=== PATIENT | female | born 1955 | race Caucasian/White ===

== ENCOUNTER → 2019-09-03 18:02 | Outpatient (CLI) | payer OTHER, SELFPAY ==
--- NOTE | ~2019-09-03 | XR_ITS ---
EXAMINATION: XR foot LT min 3V DATE: 09/03/2019 18:50 INDICATION: Lateral left foot pain. TECHNIQUE: 4 views of left foot were obtained. COMPARISON: None. FINDINGS: Bone alignment is normal. No fracture. There is moderate osteoarthritis of first metatarsop halangeal joint and mild osteoarthritis of talonavicular joint and some of the interphalangeal joints . There is an enthesophyte at plantar aspect of calcaneal tuberosity. IMPRESSION: 1. Polyarticular osteoarthritis. Reviewed, dictated and finalized at location A. OLOGY SPECIALIST
== END ==
PROVIDERS: PCP Family Medicine; Visit Provider Family Medicine
DX: M19.072 Primary osteoarthritis, left ankle and foot (principal)
CPT/HCPCS: 73630

== ENCOUNTER 2020-06-02 15:41 | Outpatient (CLI) | payer OTHER, SELFPAY ==
--- NOTE | ~2020-06-02 | MM_ITS ---
EXAMINATION: MM screening ariana BI w jose antonio HISTORY: Screening mammogram TECHNIQUE: Craniocaudal and mediolateral oblique 3-D tomosynthesis images were obtained and synthetic 2-D images were generated. CAD analysis was submitted and interpreted. COMPARISON: 09/18/2018 bilateral diagnostic digital mammogram and bilateral Limited breast ultrasound 03/16/2018 bilateral mammogram and complete right breast ultrasound 07/22/2017 diagnostic right digital mammogram and complete right breast ultrasound BREAST PARENCHYMAL COMPOSITION: The breasts are heterogeneously dense, which may obscure small masses . FINDINGS: A biopsy marker is present in the subareolar area; history of bilateral benign breast biops ies. There are scattered bilateral benign microcalcifications. There are multiple left circumscribed opacities measuring up to 2 cm. Diagnostic left mammogram and s onographic correlation are recommended IMPRESSION: 1. Multiple circumscribed centimeter left breast masses 2. Recommend diagnostic left mammogram and left breast ultrasound BI-RADS Category 0: Incomplete: Needs additional imaging evaluation. Reviewed, dictated and finalized at location A. S FORMING ENGINEER
== END 2020-06-02 15:42 | disposition home or self-care (01) ==
LOC: ANHIMG 15:42
PROVIDERS: PCP Family Medicine; Visit Provider Obstetrics & Gynecology
DX: Z12.31 Encounter for screening mammogram for malignant neoplasm of breast (principal); R92.8 Other abnormal and inconclusive findings on diagnostic imaging of breast
CPT/HCPCS: 77063; 77067

== ENCOUNTER 2020-07-18 11:38 | Outpatient (CLI) | payer OTHER, SELFPAY ==
--- NOTE | ~2020-07-18 | MMUS_ITS ---
EXAMINATION: MM diagnostic mammo unilat LT, US breast LT limited HISTORY: Left breast masses on screening mammogram TECHNIQUE: Additional 3-D tomosynthesis images of the left breast were performed and synthetic 2-D im ages were generated. CAD analysis was submitted and interpreted. High resolution limited left breast ultrasound was performed. COMPARISON: 06/02/2020, 09/18/2018, 03/16/2018, 12/13/2016 BREAST PARENCHYMAL COMPOSITION: The breasts are heterogeneously dense, which may obscure small masses . FINDINGS: MAMMOGRAPHIC FINDINGS: Multiple waxing and waning obscured left breast masses are demonstrated with spot compression views. No spiculated or irregular mass is identified. There is no suspicious calcification or architectural distortion. ULTRASOUND: There are multiple cysts in the outer left breast, some of which demonstrate internal septation. No s uspicious cystic or solid mass is identified. IMPRESSION: 1. No mammographic or sonographic evidence of malignancy. 2. Recommend routine screening mammography in one year. BI-RADS Category 2: Benign finding(s). Reviewed, dictated and finalized at location A. ORATE RECYCLING MANAGER IMPRESSION: 1. No mammographic or sonographic evidence of malignancy. 2. Recommend routine screening mammography in one year. BI-RADS Category 2: Benign finding(s).
== END 2020-07-18 11:39 | disposition home or self-care (01) ==
LOC: ANHIMG 11:39
PROVIDERS: PCP Family Medicine; Visit Provider Obstetrics & Gynecology
DX: R92.8 Other abnormal and inconclusive findings on diagnostic imaging of breast (principal)
CPT/HCPCS: 76642; 77065

== ENCOUNTER 2021-12-03 08:34 | Outpatient (CLI) | payer OTHER, SELFPAY ==
--- NOTE | ~2021-12-03 | MM_ITS ---
EXAMINATION: MM screening ariana BI w jose antonio HISTORY: Screening mammogram TECHNIQUE: Craniocaudal and mediolateral oblique 3-D tomosynthesis images were obtained and synthetic 2-D images were generated. CAD analysis was submitted and interpreted. COMPARISON: 07/18/2020 diagnostic left mammogram and limited left breast ultrasound 06/02/2020 bilateral screening mammogram 09/18/2018 bilateral diagnostic mammography and Limited bilateral breast ultrasound 03/16/2018 bilateral mammogram and complete right breast ultrasound 07/22/2017 diagnostic right mammogram and complete right breast ultrasound 12/13/2016 diagnostic left mammogram and complete left breast ultrasound 06/29/2016 Diagnostic left mammogram and limited left breast ultrasound 06/25/2015 bilateral screening mammogram BREAST PARENCHYMAL COMPOSITION: The breasts are heterogeneously dense, which may obscure small masses . FINDINGS: There are bilateral breast masses. There is bilateral architectural distortion including up per outer left breast, central and inner right breast on craniocaudal view. Bilateral diagnostic mammography and breast ultrasound examination are recommended. IMPRESSION: 1. Bilateral breast masses and architectural distortion 2. Recommend routine screening mammography in one year. BI-RADS Category 0: Incomplete: Needs additional imaging evaluation. Reviewed, dictated and finalized at location A.
== END 2021-12-03 08:35 | disposition home or self-care (01) ==
PROVIDERS: PCP Family Medicine; Visit Provider Obstetrics & Gynecology
DX: Z12.31 Encounter for screening mammogram for malignant neoplasm of breast (principal); R92.8 Other abnormal and inconclusive findings on diagnostic imaging of breast
CPT/HCPCS: 77063; 77067

== ENCOUNTER 2021-12-15 13:40 | Outpatient (CLI) | payer OTHER, SELFPAY ==
--- NOTE | ~2021-12-15 | MM_ITS ---
EXAMINATION: MM diagnostic ariana BI w jose antonio HISTORY: Bilateral breast masses and possible architectural distortion on screening mammogram TECHNIQUE: Additional 3-D tomosynthesis images of the breasts were performed and synthetic 2-D images were generated. CAD analysis was submitted and interpreted. COMPARISON: 12/03/2021, 07/18/2020, 06/02/2020, 09/18/2018, 03/16/2018, 07/22/2017 FINDINGS: Again seen are multiple waxing and waning bilateral breast masses which have been previousl y characterized as benign. None demonstrate suspicious interval change with spot compression. In alexis tion, there are areas of subtle architectural distortion in both breasts which have a stable appearan ce with spot compression when compared to prior mammograms. IMPRESSION: 1. No mammographic evidence of malignancy. 2. Recommend routine screening mammography in one year. BI-RADS Category 2: Benign finding(s). Reviewed, dictated and finalized at location A.
== END 2021-12-15 13:41 | disposition home or self-care (01) ==
PROVIDERS: PCP Emergency Medicine; Visit Provider Obstetrics & Gynecology
DX: R92.8 Other abnormal and inconclusive findings on diagnostic imaging of breast (principal)
CPT/HCPCS: 77062; 77066; G0279

== ENCOUNTER 2023-03-30 09:31 | Outpatient (CLI) | payer OTHER, SELFPAY ==
--- NOTE | ~2023-03-30 | CT_ITS ---
EXAMINATION: CT abdomen pelvis w con DATE: 03/30/2023 09:58 INDICATION: Blood in stools. TECHNIQUE: Computed tomography (CT) of the abdomen and pelvis was performed with 100 mL Omnipaque-350 intravenous contrast. Automated exposure control and iterative reconstruction technique were employe d. The dose-length product was 293.04 mGy-cm. COMPARISON: None FINDINGS: Minimal dependent atelectasis in the right lower lobe. Arch size is normal. No pericardial or pleural effusion. 6 mm hepatic cyst. Gallbladder, spleen, pancreas, bilateral adrenal glands and kidneys are normal. Bladder is normal. The uterus is not identified and has likely been surgically resected. Int estinal malrotation with small bowel in the right abdomen in the colon in the left abdomen. No abnorm al bowel wall thickening or obstruction. Normal appendix. Minimal free fluid in the deep pelvis. No a bscess or free intraperitoneal gas. No pathologically enlarged abdominal or pelvic lymphadenopathy. M oderate spondylosis at the lumbosacral junction with mild cephalad lumbar and lower thoracic spondylo sis. IMPRESSION: 1. Small amount of likely physiologic free fluid in the pelvis. No acute intra-abdominal/pelvic proce ss. 2. Intestinal malrotation. Reviewed, dictated and finalized at location A. IMPRESSION: 1. Small amount of likely physiologic free fluid in the pelvis. No acute intra- abdominal/pelvic process. 2. Intestinal malrotation.
[2023-03-30 09:53] LABS: Estimated Glomerular Filt Rate > 60
== END 2023-03-30 09:32 | disposition home or self-care (01) ==
PROVIDERS: PCP Internal Medicine; Visit Provider Nurse Practitioner
DX: K92.1 Melena (principal); R10.32 Left lower quadrant pain; Q43.3 Congenital malformations of intestinal fixation
CPT/HCPCS: 74177; Q9967

== ENCOUNTER 2023-04-20 14:49 | Outpatient (CLI) | payer OTHER, SELFPAY ==
--- NOTE | ~2023-04-20 | MM_ITS ---
EXAMINATION: MM screening ariana BI w jose antonio HISTORY: Screening mammogram TECHNIQUE: Craniocaudal and mediolateral oblique 3-D tomosynthesis images were obtained and synthetic 2-D images were generated. CAD analysis was submitted and interpreted. COMPARISON: diagnostic bilateral mammogram 12/03/2021 bilateral screening mammogram 07/18/2020 diagnostic left mammogram and limited left breast ultrasound 06/02/2020 bilateral screening mammogram BREAST PARENCHYMAL COMPOSITION: The breasts are heterogeneously dense, which may obscure small masses . FINDINGS: There are numerous bilateral circumscribed opacities with halo sign, consistent with multip le bilateral benign cysts. Biopsy marker on the right. History of bilateral benign breast biopsies. There are scattered bilateral benign calcifications. No suspicious mass, malignant calcification, skin thickening or retraction is evident. IMPRESSION: 1. Multiple bilateral breast cysts No mammographic evidence of malignancy. 2. Recommend routine screening mammography in one year. BI-RADS Category 2: Benign finding(s). Reviewed, dictated and finalized at location A.
== END 2023-04-20 14:50 | disposition home or self-care (01) ==
LOC: ANHIMG 14:51
PROVIDERS: PCP Internal Medicine; Visit Provider Obstetrics & Gynecology
DX: Z12.31 Encounter for screening mammogram for malignant neoplasm of breast (principal)
CPT/HCPCS: 77063; 77067

== ENCOUNTER 2023-06-07 03:13 | Day surgery (SDC) | payer OTHER, SELFPAY ==
[2023-05-20 09:47] VITALS: BMI 22.9
--- NOTE | 2023-06-06 09:10 | SUR.PREOP ---
Patient called regarding upcoming procedure. Message left on patient's voicemail regarding preop instructions, appointment times, and procedure prep.
[2023-06-07 09:52] VITALS: BP 111/61; PULSE 77; RESP 16; TEMP 36.3; O2SAT 99; BMI 22.3
[2023-06-07] MEDS: LACTATED RINGERS 1,000 ML 150 ML IV CONT (10:06)
--- NOTE | 2023-06-07 10:12 | P.PNAN_ITS ---
Anes - Initial Pre Proc Eval Procedure: Operation Date: 06/07/23 11:00 Proposed Procedures p Esophagogastroduodenoscopy & Screening Colonoscopy - Triston Toledo MD Date/Time: 06/07/23 10:12 Surgeon: Triston Toledo MD Pre Op Diagnosis: GERD,neoplasm screening Patient Data Age: 67 Gender: F Height: 1.6 m Weight: 57.2 kg Last Vital Signs Temp 97.3 F L 06/07/23 09:52 Pulse 77 06/07/23 09:52 Resp 16 06/07/23 09:52 BP 111/61 06/07/23 09:52 Pulse Ox 99 06/07/23 09:52 O2 Del Method Room Air 06/07/23 09:52 Allergies Allergy/AdvReac Type Severity Reaction Status Date / Time No Known Allergies Allergy Unknown Verified 06/07/23 09:51 Home Medications Medication Instructions Recorded Confirmed Type estradiol 1 mg tablet 1 mg PO DAILY 09/03/19 06/07/23 History alprazolam 0.5 mg tablet 0.5 mg PO .q4 PRN anxiety #30 tabs 03/18/21 06/07/23 Rx vortioxetine 10 mg tablet See Rx Instructions .Route 08/07/21 06/07/23 Rx (Trintellix) .COMPLEX #90 tabs quetiapine 25 mg tablet See Rx Instructions .Route 12/09/22 06/07/23 Rx .COMPLEX #90 tabs Patient hx anesthesia problems: none Family hx anesthesia problems: none Results Review: All pre-operative results and documents have been reviewed as part of the pre- operative evaluation. [facility] Surgical History Surgical History H/O: hysterectomy Social History Social History Smoking status: Never smoker Alcohol intake: current Drinks per week: 2 Alcohol use details: wine Substance use: never Substance use type: does not use Living arrangements: with family Spiritual care concerns: No Anes - Eval Final PreProcedure Day of Procedure 06/07/23 10:12 Patient weight: normal Heart: regular rate and rhythm Lungs: clear to auscultation Airway: Mallampati scale class II Neurological: alert and oriented Last oral intake: >/= 8 hours ASA classification: II Emergent: no Anesthetic plan: proceed Anesthesia type and monitoring: general GIVS and standard monitoring Results Review: All pre-operative results and documents have been reviewed as part of the pre- operative evaluation. Informed Consent: The patient's anesthetic plan and its attendant risks and benefits were discussed with the patient/family/POA. Questions were solicited and answers provided to the satisfaction of the patient/family/POA.
--- NOTE | 2023-06-07 10:27 | PM.HPGS ---
History of Present Illness History of Present Illness Consent: Risks, benefits, and alternatives have been discussed and questions answered. Patient agrees to proceed with procedure. Chief complaint: GERD,neoplasm screening Narrative: Maddie Porter is a 67 year old female Presents for EGD and colonoscopy. Patient reports irregular bowel movements care it. Occasional loose stools. It has been approximately 15 years since last colonoscopy. She presents for screening colonoscopy. Because of abdominal discomfort and GE reflux an EGD is requested. Review of Systems Review of Systems: Review of systems noncontributory. [facility] Surgical History Surgical History H/O: hysterectomy Social History Social History Smoking status: Never smoker Alcohol intake: current Drinks per week: 2 Alcohol use details: wine Substance use: never Substance use type: does not use Living arrangements: with family Spiritual care concerns: No Meds Home Medications and Allergies Home Medications Medication Instructions Recorded Confirmed Type estradiol 1 mg tablet 1 mg PO DAILY 09/03/19 06/07/23 History alprazolam 0.5 mg tablet 0.5 mg PO .q4 PRN anxiety #30 tabs 03/18/21 06/07/23 Rx vortioxetine 10 mg tablet See Rx Instructions .Route 08/07/21 06/07/23 Rx (Trintellix) .COMPLEX #90 tabs quetiapine 25 mg tablet See Rx Instructions .Route 12/09/22 06/07/23 Rx .COMPLEX #90 tabs Allergies Allergy/AdvReac Type Severity Reaction Status Date / Time No Known Allergies Allergy Unknown Verified 06/07/23 09:51 Vital Signs Vital Signs - 24 hr 06/07/23 09:52 Temperature 97.3 F L Pulse Rate 77 Respiratory Rate 16 Blood Pressure 111/61 Pulse Oximetry 99 Oxygen Delivery Room Air Exam Narrative: Physical exam reveals patient to be alert. Vital signs stable. HEENT exam is unremarkable. Patient is anicteric. Lungs are clear to auscultation and to percussion. Heart is without murmur or extra sounds. Abdomen bowel sounds are present soft nontender with no organomegaly. Digital external rectal exam normal. Assessment and Plan Assessment and plan (1) Encounter for screening colonoscopy: Code(s): Z12.11 - Encounter for screening for malignant neoplasm of colon Status: Acute Assessment and Plan: Patient presents for screening exam is been more than 10 years since last exam. She currently complains of irregular bowel movements. Fiber supplementation encouraged. Further recommendations may be given after endoscopy. (2) GERD (gastroesophageal reflux disease): Code(s): K21.9 - Gastro-esophageal reflux disease without esophagitis Status: Acute Assessment and Plan: Patient referred for GE reflux disease. She states she has bowel irregularities discomfort. Occasional phlegm in her throat. EGD is requested will be performed. She may wish to consider ENT evaluation if this fails to identify source of discomfort.
--- NOTE | 2023-06-07 11:05 | SUR.OPER ---
EGD END: 1100 COLONOSCOPY START: 110
[2023-06-07 11:20] VITALS: BP 147/78; PULSE 72; RESP 17; O2SAT 98
[2023-06-07 11:30] VITALS: BP 140/79; PULSE 64; RESP 19; O2SAT 100
[2023-06-07 11:40] VITALS: BP 136/77; PULSE 63; RESP 15; O2SAT 100
== END 2023-06-07 11:51 | disposition home or self-care (01) ==
PROVIDERS: PCP Internal Medicine; Visit Provider Internal Medicine Gastroenterology
PROC: 0DJ08ZZ Inspection of Upper Intestinal Tract, Via Natural or Artificial Opening Endoscopic (ICD-10-PCS; CPT 43235; principal; 2023-06-07 11:00)
DX: Z12.11 Encounter for screening for malignant neoplasm of colon (principal); K64.8 Other hemorrhoids; K21.9 Gastro-esophageal reflux disease without esophagitis
CPT/HCPCS: 43239; 45378; 87081; J2704; J7120

== ENCOUNTER 2024-05-07 07:40 | Outpatient (CLI) | payer OTHER, SELFPAY ==
--- NOTE | ~2024-05-07 | DEXA_ITS ---
Bone Density Report Name: WILLIAN ORELLANA Age: 68 Sex: Female Ethnicity: White Date of : 1955 Indication: postmenopausal; screening for osteoporosis; inflammatory bowel disease; hysterectomy; Referring Provider: MERCEDEZ, YONATHAN Study: Bone densitometry was performed. Exam Date: May 07, 2024 Accession number: [id number] Bone Density: Region BMD T-score Z-score Classification AP Spine(L1-L4) 1.162 1.0 3.0 Normal Femoral Neck (Left) 0.741 -1.0 0.7 Normal Total Hip (Left) 0.855 -0.7 0.6 Normal Femoral Neck (Right) 0.701 -1.3 0.3 Osteopenia Total Hip (Right) 0.836 -0.9 0.5 Normal Total Hip Mean 0.845 -0.8 0.6 Normal World Health Organization criteria for BMD impression classify patients as: Normal (T-score at or above -1.0), Osteopenia (T-score between -1.0 and -2.5), or Osteoporosis (T-score at or below -2.5). 10-year Fracture Risk(1): Major Osteoporotic Fracture 8.7% Hip Fracture 0.9% Reported Risk Factors: [place] (), Neck BMD=0.701, BMI=23.1 (1) FRAX(R) Version 3.08. Fracture probability calculated for an untreated patient. Fracture probability may be lower if the patient has received treatment. Clinical Information Provided by Patient: Has the following medical conditions: Inflammatory bowel diseases, Hysterectomy Patient maximum height was 63.5 Does not regularly consume dairy products Drinks caffeinated beverages Onset of menses at age 13 Number of children 3 Impression: The patient has low bone mass, based on the Right Femoral Neck T-score. The patient has an estimated ten-year risk of hip fracture of 0.9% and an estimated ten-year risk of major fracture of 8.7%, based on the WHO FRAX algorithm. Discussion: BONE DENSITY IS LOW AT ONE OR MORE SKELETAL SITES. This patient's lowest T-score is low at one or more skeletal sites. It meets the World Health Organization's (WHO) criteria for ?low bone mass? (T-score between -1.0 and -2.5). The patient's 10-year risk of fracture as calculated by FRAX is less than the threshold where pharmacological therapy is recommended by the National Osteoporosis Foundation (NOF). However, all treatment decisions require clinical judgment and consideration of individual patient factors, including patient preferences, comorbidities, previous drug use, risk factors not captured in the FRAX model (e.g., frailty, falls, vitamin D deficiency, increased bone turnover, interval significant decline in bone density) and possible under or overestimation of fracture risk by FRAX. The patient should follow a healthful lifestyle (good nutrition with adequate calcium and vitamin D, and appropriate weight-bearing exercise). Follow-Up: Consider repeating this study in 2 to 3 years to reassess this patient's status, or sooner if there is some new clinical indication. Reported by: EFRAÍN on 05/07/2024 8:08:00 AM. Reviewed, dictated and finalized at location AZonia HAIDER
== END 2024-05-07 07:41 | disposition home or self-care (01) ==
LOC: ANHIMG 07:41
PROVIDERS: PCP Family Medicine; Visit Provider Internal Medicine
DX: M85.851 Other specified disorders of bone density and structure, right thigh (principal); Z78.0 Asymptomatic menopausal state
CPT/HCPCS: 77080

== ENCOUNTER 2024-06-20 09:33 | Outpatient (CLI) | payer OTHER, SELFPAY ==
--- NOTE | ~2024-06-20 | MM_ITS ---
EXAMINATION: MM screening ariana BI w jose antonio HISTORY: Screening TECHNIQUE: Craniocaudal and mediolateral oblique 3-D tomosynthesis images were obtained and synthetic 2-D images were generated. CAD analysis was submitted and interpreted. COMPARISON: Comparison to multiple prior studies sequentially, with oldest reviewed study dated 09/18. BREAST PARENCHYMAL COMPOSITION: Dense: The breasts are heterogeneously dense, which may obscure small masses FINDINGS: There are developing masses in the upper outer quadrant of the right breast as well as the upper outer quadrant of the left breast in the lower central left breast. IMPRESSION: 1. Developing bilateral breast masses. 2. Additional mammographic views and possible breast ultrasound are recommended. BI-RADS Category 0: Incomplete: Needs additional imaging evaluation. Reviewed, dictated and finalized at location B. NG BOOKKEEPER IMPRESSION: 1. Developing bilateral breast masses. 2. Additional mammographic views and possible breast ultrasound are recommended . BI-RADS Category 0: Incomplete: Needs additional imaging evaluation.
== END 2024-06-20 09:34 | disposition home or self-care (01) ==
LOC: ANHIMG 09:36
PROVIDERS: PCP Family Medicine; Visit Provider Obstetrics & Gynecology
DX: R92.2 Inconclusive mammogram (principal)
CPT/HCPCS: 77063; 77067

== ENCOUNTER 2024-07-09 10:18 | Outpatient (CLI) | payer OTHER, SELFPAY ==
--- NOTE | ~2024-07-09 | MMUS_ITS ---
EXAMINATION: MM diagnostic ariana BI w jose antonio, US breast BI limited HISTORY: Probable benign 5 mm right breast mass TECHNIQUE: 3-D tomosynthesis images of the breasts were performed and synthetic 2-D images were gener ated. CAD analysis was submitted and interpreted. High resolution limited right breast ultrasound was performed. COMPARISON: 06/20/2024, 04/20/2023 12/03/2021 BREAST PARENCHYMAL COMPOSITION:Dense: The breasts are heterogeneously dense, which may obscure small masses. FINDINGS: MAMMOGRAPHIC FINDINGS: Multiple bilateral breast masses are present mammographically, relatively similar in size and distrib ution from prior exam. These were previously shown to represent breast cysts. No suspicious mass or t orsion seen. No suspicious microcalcification. ULTRASOUND: Multiple bilateral breast cysts are present. Largest cyst in the right breast measures 2.0 x 2.5 x 1. 2 cm. Largest cyst in the left breast measures 1.8 x 2.1 x 1.2 cm. At the 2:00 position left breast, 3 cm the nipple, there is a 5 x 7 x 4 mm hypoechoic solid circumscr ibed mass. No posterior shadowing. There is a similar-appearing 6 x 6 x 5 mm hypoechoic solid mass in the left breast 3:00 position, 4 cm from the nipple. IMPRESSION: 2 separate subcentimeter probable benign solid masses at the left breast, at the 3:00 and 2:00 positi ons, as detailed above. 6 month follow-up ultrasound recommended to reassess these solid lesions. Multiple breast cysts otherwise. BI-RADS category 3, probably benign findings. Reviewed, dictated and finalized at location . EL LOADER IMPRESSION: 2 separate subcentimeter probable benign solid masses at the left breast, at th e 3:00 and 2:00 positions, as detailed above. 6 month follow-up ultrasound [place] mmended to reassess these solid lesions. Multiple breast cysts otherwise. BI-RADS category 3, probably benign findings.
== END 2024-07-09 10:19 | disposition home or self-care (01) ==
LOC: ANHIMG 10:21
PROVIDERS: PCP Family Medicine; Visit Provider Obstetrics & Gynecology
DX: R92.8 Other abnormal and inconclusive findings on diagnostic imaging of breast (principal)
CPT/HCPCS: 76642; 77062; 77066; G0279

== ENCOUNTER 2025-01-22 12:47 | Outpatient (CLI) | payer MEDICARE, SELFPAY ==
--- NOTE | ~2025-01-22 | US_ITS ---
US breast LT limited 01/22/2025 13:19 Indication: Six-month follow-up left breast masses Procedure: High-resolution Limited ultrasound of the left breast Comparison: 07/09/2024 Findings: Mass in the left breast at 2:00, 3 cm from the nipple is stable measuring 6 x 5 x 4 mm with parallel orientation, circumscribed margins, no internal vascularity or significant posterior featur es, likely benign. Mass at 3:00, 6 cm from the nipple is stable measuring 5 x 4 x 4 mm, likely benign . Mass at 3:00, 6 cm from the nipple is similar appearance measuring 5 mm, not definitely seen on emilee or study, likely benign. Impression: 1: Multiple likely benign left breast masses. BI-RADS CATEGORY 3-PROBABLY BENIGN FINDING RECOMMENDATION: Six-month follow-up diagnostic bilateral mammogram and Limited left breast ultrasound . Reviewed, dictated and finalized at location B. Impression: 1: Multiple likely benign left breast masses. BI-RADS CATEGORY 3-PROBABLY BENIGN FINDING RECOMMENDATION: Six-month follow-up diagnostic bilateral mammogram and Limited left breast ultrasound.
--- OUTSIDE RECORDS SUMMARY | 2025-01-22 12:58 | XMS_ITS | Clinical Summary ---
Author Organization [facility] Address [address] [place] [address] Care Team Providers Care Gas Plumbing Inspector Name Role Phone Jamie Sethi MD Primary Care Provider [phone] Allergies Active Allergy Reactions Criticality Noted Date Comments Venlafaxine Other (see comment) 02/25/2023 Could see her eyelashes and hear them blink Medications estradiol (ESTRACE) 1 MG tablet Take 1 tablet (1 mg total) by mouth daily. 05/13/2022 Active escitalopram (LEXAPRO) 10 MG tabletIndicatio ns:Moderate episode of recurrent major depressive disorder (CMS/HCC),Anxie ty Take 1.5 tablets (15 mg total) by mouth daily. 135 tablet 1 02/17/2024 Active QUEtiapine (SEROQUEL) 25 MG tabletIndicatio ns:Moderate episode of recurrent major depressive disorder (CMS/HCC),Anxie ty Take 1 tablet (25 mg total) by mouth nightly at bedtime. 90 tablet 1 02/17/2024 Active TRINTELLIX 20 MG tabletIndicatio ns:Moderate episode of recurrent major depressive disorder (CMS/HCC) Take 1 tablet (20 mg total) by mouth daily. 30 tablet 03/12/2024 Active Active Problems Problem Noted Date Diagnosed Date Osteopenia of neck of right femur 12/10/2022 Overview (12/10/2022): DEXA scan 2019. Moderate episode of recurrent major depressive d isorder 05/27/2022 Anxiety 05/27/2022 Family history of breast cancer in sister 2021 Immunizations Immunization Administration Dates Next Due MODERNA COVID-19 (12+) MRNA, LNP-S, PF, 100 MCG/ 0.5 ML DOSE 09/22/2021 Shingrix 08/19/2021,06/08/2021 Family History Medical History Relation Comments Cancer Daughter 1 Depression Daughter 2 Depression Father Diabetes Maternal Grandfather Cancer Maternal Grandmother Arthritis Mother Cancer Sister Relation Status Comments Daughter 1 Daughter 2 Father Maternal Grandfather Maternal Grandmother Mother Sister Alive Social History Tobacco Use Types Packs/Day Years Used Date Smoking Tobacco: Never Passive Smoke Exposure: Past Smokeless Tobacco: Never Tobacco Cessation:Counseling Given: No Comments:Counseled by Dr. Sethi. 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 Gender Identity Not on file Sexual Orientation Not on file Last Filed Vital Signs Vital Sign Reading Time Taken Comments Blood Pressure 123/70 02/17/2024 2:15 PM CDT Pulse 73 02/17/2024 2:15 PM CDT Temperature 36.7 C (98 F) 02/17/2024 2:15 PM CDT Respiratory Rate 18 02/17/2024 2:15 PM CDT Oxygen Saturation 98% 02/17/2024 2:15 PM CDT Inhaled Oxygen Concentration - - Weight 59.3 kg (130 lb 12.8 oz) 02/17/2024 2:15 PM CDT Height 160 cm (5' 3) 02/17/2024 2:15 PM CDT Body Mass Index 23.17 02/17/2024 2:15 PM CDT Plan of Treatment Health Maintenance Due Date Last Done Comments DTaP, Tdap and Td Vaccines (1 - Tdap) 11/24/1975 Pneumococcal Vaccine: 50+ Years (1 of 1 - PCV) 2006 COVID-19 Vaccine (3 - season) 2024 09/22/2021, 10/14/2020 PHQ-2 (Physician [place]) 07/11/2024 10/18/2023 Mammogram Screening 04/20/2025 04/20/2023, 12/15/2021, 12/15/2021, Additional history exists Colorectal Cancer Screening FIT-DNA (3 Years) 06/12/2025 06/12/2022, 06/12/2022 RSV Immunization or 60+ Years (1 - 1-dose 75+ series) 11/24/2031 Zoster Vaccines Completed 08/19/2021, 06/08/2021 Hepatitis C Completed 02/24/2024 Dexa Scan (General) Completed 05/07/2024, 0 Meningococcal B Vaccine Aged Out No l onger eligible based on patient's age to complete this topic Meningococcal Vaccine Aged Out No jersey roger eligible based on patient's age to complete this topic RSV Immunizations Under 20 Months Aged Out No longer eligible based on patient's age to complete this topic Procedures Procedure Name Priority Date/Time Associated Diagnosis Comments BONE DENSITY GENERIC (SCAN ORDER) 05/07/2024 HEPATITIS C ANTIBODY Routine 02/24/2024 8:03 AM CDT Annual physical exam General medical exam MAMMOGRAM GENERIC (SCAN ORDER) 04/20/2023 COLOGUARD (SCAN ORDER) Routine 06/12/2022 from Last 3 Months or Most Recently Relevant to Health Maintenance Results * BONE DENSITY GENERIC (SCAN ORDER) (05/07/2024) Anatomical Region Laterality Modality Other 05/07/2024 [facility] Scanned SCANNING Final Resu lt * HEPATITIS C ANTIBODY (02/24/2024 8:03 AM CDT) HEPATITIS C AB NON-REACTI VE NON-REACT MATHEW 02/24/2024 6:30 PM CDT [facility] Comment: ANTIBODIES TO HCV NOT DETECTED. DOES NOT EXCLUDE THE POSSIBILITY OF EXPOSURE TO HCV. 02/24/2024 8:03 AM CDT Jamie Sethi MD LABORATORY Final Result [facility] [address] [place] [address], [id number] * MAMMOGRAM GENERIC (04/20/2023) Anatomical Region Laterality Modality Other 04/20/2023 us [employer] [facility] Scanned SCANNING Final Resu lt * COLOGUARD (SCAN) (06/12/2022) COLOGUARD NEGATIVE [facility] ONBASE STOOL 06/12/2022 us [employer] [facility] Scanned SCANNING Final Resu lt HS ONBASE from Last 3 Months or Most Recently Relevant to Health Maintenance Insurance [employer] OPEN [facility] Care Teams Gas Plumbing Inspector Relationship Specialty Start Date End Date Jamie Sethi MD [address] [facility] [address] [place] [address] PCP - General INTERNAL MEDICINE 12/13/22
--- OUTSIDE RECORDS SUMMARY | 2025-01-22 12:58 | XMS_ITS | Encounter Summary ---
Author Organization [facility] Address [address] [place] [address] Care Team Providers Care Engraving Operator Name Role Phone Jamie Sethi MD Primary Care Provider [phone] Encounter Details Date Type Department Care Team (Latest Contact Info) Description 03/12/2024 LikeBrightt Message Enc [facility] Medical Group Multispecialty Care - [place] [address] [address] [place], [place] [id number] Jamie Sethi MD [address] [id number] Appointment needed for mood medication Social History Tobacco Use Types Packs/Day Years Used Date Smoking Tobacco: Never Passive Smoke Exposure: Past Smokeless Tobacco: Never Comments:Counseled by Dr. Ernestina mesa. 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
--- OUTSIDE RECORDS SUMMARY | 2025-01-22 12:58 | XMS_ITS | Encounter Summary ---
Author Organization [facility] Address [address] [place] [address] Care Team Providers Care Internet Architect Name Role Phone Armando Hampton MD Primary Care Pr ovider [facility] Jamie Sethi MD Primary Care Provider [phone] Encounter Details Date Type Department Care Team (Late st Contact Info) Description 07/22/2022 Agilyst Message Enc [facility] Medical Group Multispecialty Care - [address] [place] [address] Armando Hampton MD Lexapro Medication Social History Tobacco Use Types Packs/Day Years Used Date Smoking Tobacco: Never Smokeless Tobacco: Never Alcohol Use Standard Drinks/Week Comments Yes 5 (1 standard drink = 0.6 oz pur e alcohol) PHQ-2 Answer Date Recorded PHQ-2 Score - If the patient scores above 3, please move on to questions 3-9 2 06/14/2022 Comments No Sex and Gender Information Value Date Recorded Sex Assigned at Not on file 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 Sex Female 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 Gender Identity Not on file Sexual Orientation Not on file documented as of this encounter Plan of Treatment Not on file documented as of this encounter Visit Diagnoses Not on filedocumented in this encounter Additional Health Concerns Assessment Noted Time PHQ-9 Depression Total Score: 8 06/14/20 22 3:55 PM RIVET TOSSER documented as of this encounter Care Teams Internet Architect Relationship Specialty Start Date End Date Armando Hampton MD PCP - General FAMILY PRACTICE 05/27/22 12/12/22 Jamie Sethi MD [address] [facility] [address] [place] [address] PCP - General INTERNAL MEDICINE 12/13/22 documented as of this encounter
--- OUTSIDE RECORDS SUMMARY | 2025-01-22 12:58 | XMS_ITS | Encounter Summary ---
Author Organization [facility] Address [facility] [place] [address] Care Team Providers Care Plaster Block Layer Name Role Phone Jamie Sethi MD Primary Care Provider [phone] Encounter Details Date Type Department Care Team (Late st Contact Info) Description 02/04/2023 NanoViricideshart Message Enc [facility] Medical Group Multispecialty Care - [place] [address] [address] [place], [place] [id number] Jamie Sethi MD [address] [place] [address] Prozac Dosage Social History Tobacco Use Types Packs/Day Years Used Date Smoking Tobacco: Never Passive Smoke Exposure: Past Smokeless Tobacco: Never Comments:Counseled by Dr. Ernestina mesa. 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
--- OUTSIDE RECORDS SUMMARY | 2025-01-22 12:58 | XMS_ITS | Encounter Summary ---
Author Organization [facility] Address [address] [place] [address] Care Team Providers Care Glue Mixer Name Role Phone Jamie Sethi MD Primary Care Provider [phone] Encounter Details Date Type Department Care Team (Latest Contact Info) Description 08/08/2023 [email or web address].[email or web address] Message Enc [facility] Medical Group Multispecialty Care - [place] [address] [address] [place], [place] [phone] Jamie Sethi MD [address] [place] [address] Medication Change Social History Tobacco Use Types Packs/Day Years Used Date Smoking Tobacco: Never Passive Smoke Exposure: Past Smokeless Tobacco: Never Comments:Counseled by Dr. Ernestina mesa. 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
--- OUTSIDE RECORDS SUMMARY | 2025-01-22 12:58 | XMS_ITS | Encounter Summary ---
Author Organization [facility] Address [address] [place] [address] Care Team Providers Care Propeller Layout Worker Name Role Phone Armando Hampton MD Primary Care Pr Jamie Bee MD Primary Care Provider [phone] Encounter Details Date Type Department Care Team (Late st Contact Info) Description 11/03/2022 Ticketlandhart Message Enc [facility] Medical Group Multispecialty Care - [address] [place] [address] Armando Hampton MD [facility] Lab Results Social History Tobacco Use Types Packs/Day Years Used Date Smoking Tobacco: Never Passive Smoke Exposure: Past Smokeless Tobacco: Never Alcohol Use Standard Drinks/Week Comments Yes 5 (1 standard drink = 0.6 oz pur e alcohol) PHQ-2 Answer Date Recorded Patient Health Questionnaire-2 Score 6 11/01/2022 Comments No Sex and Gender Information Value Date Recorded Sex Assigned at Not on file 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 No / Unsure 11/01/2022 2:45 PM CDT documented as of this encounter Plan of Treatment Not on file documented as of this encounter Visit Diagnoses Not on filedocumented in this encounter Additional Health Concerns Assessment Noted Time PHQ-9 Depression Total Score: 14 023 5:12 PM CDT documented as of this encounter Care Teams Propeller Layout Worker Relationship Specialty Start Date End Date Armando Hampton MD PCP - General FAMILY PRACTICE 05/27/22 12/12/22 Jamie Sethi MD [address] [address] PCP - General INTERNAL MEDICINE 12/13/22 documented as of this encounter
--- OUTSIDE RECORDS SUMMARY | 2025-01-22 12:58 | XMS_ITS | Encounter Summary ---
Author Organization [facility] Address [address] [place] [address] Care Team Providers Care Yard Specialist Name Role Phone Armando Hampton MD Primary Care Pr Jamie Bee MD Primary Care Provider [phone] Encounter Details Date Type Department Care Team (Late st Contact Info) Description 06/22/2022 fruux Message [employer] HE[facility] INFORMATION MANAGEMENT [address] [place] [address] [employer], [facility] Provider Patient Amendment Request Social History Tobacco Use Types Packs/Day Years [...] on file Legal Sex Female 12:03 PM JANITOR HEAD Gender Identity Not on file Sexual Orientation Not on file COVID-19 Exposure Response Date Recorded In the last 10 days, have yo u been in contact with someone who was confirmed or suspected to have Coronavirus/COVID-19? No / Unsure 06/14/2022 2:42 PM JANITOR HEAD documented as of this encounter Plan of Treatment Not on file documented as of this encounter Visit Diagnoses Not on filedocumented in this encounter Additional Health Concerns Assessment Noted Time PHQ-9 Depression Total Score: 8 06/14/20 22 3:55 PM JANITOR HEAD documented as of this encounter Care Teams Yard Specialist Relationship Specialty Start Date End Date Armando Hampton MD PCP - General FAMILY PRACTICE 05/27/22 12/12/22 Jamie Sethi MD [address] [address] PCP - General INTERNAL MEDICINE 12/13/22 documented as of this encounter
== END 2025-01-22 12:48 | disposition home or self-care (01) ==
LOC: ANHIMG 12:50
PROVIDERS: PCP Family Medicine; Visit Provider Obstetrics & Gynecology
DX: R92.8 Other abnormal and inconclusive findings on diagnostic imaging of breast (principal)
CPT/HCPCS: 76642

== ENCOUNTER 2025-06-21 12:44 | Outpatient (CLI) | payer MEDICARE, SELFPAY | END 2025-06-21 12:45 | disposition home or self-care (01) | PROVIDERS: PCP Nurse Practitioner Family; Visit Provider Nurse Practitioner Family | DX: Z00.00 Encounter for general adult medical examination without abnormal findings (principal); F33.1 Major depressive disorder, recurrent, moderate; F41.1 Generalized anxiety disorder; E78.5 Hyperlipidemia, unspecified; Z80.3 Family history of malignant neoplasm of breast; Z78.0 Asymptomatic menopausal state; H90.3 Sensorineural hearing loss, bilateral | CPT/HCPCS: 92557; 92567 ==